=== PATIENT | female | born 1950 | race Caucasian/White ===

== ENCOUNTER 2019-09-20 17:52 | Emergency (ER) | payer OTHER, SELFPAY | END 2019-09-21 01:30 | disposition home or self-care (01) | PROVIDERS: Emergency Provider Physician Assistant; Visit Provider Physician Assistant | DX: S42.232A 3-part fracture of surgical neck of left humerus, initial encounter for closed fracture (principal); W17.89XA Other fall from one level to another, initial encounter; I10 Essential (primary) hypertension ==